=== PATIENT | female | born 1985 | race Caucasian/White ===

== ENCOUNTER 2018-07-13 14:58 | Outpatient (REF) | payer BC, MEDICAID, SELFPAY ==
[2018-07-13 21:19] LABS: Absolute Basophil Count 0.03 k/cumm (0.0-0.2); Absolute Eosinophil Count 0.08 k/cumm (0.0-0.7); Absolute Lymphocyte Count 1.67 k/cumm (1.2-3.4); Absolute Neutrophil Count 3.05 k/cumm (1.2-6.7); Basophils % 0.6; Eosinophils % 1.6; HGB 12.5 g/dL (12.0-15.5); Lymphocytes % 32.6; Mean Corp. HGB Concentration 33.8 g/dL (32.0-36.0); Mean Corpuscular Hemoglobin 31.4 pg (27.0-33.0); Mean Platelet Volume 10.2 fL (8.0-11.0); Monocytes % 5.8; Neutrophils % 59.4; Platelet Count 268 x1000/uL (130-400); RBC 3.98 m/cumm (4.00-5.20); RBC Distribution Width 11.8 % (11.7-14.6); White Blood Cell Count 5.13 k/cumm (4.4-10.8)
[2018-07-13 21:58] LABS: ALT 12 U/L (12-78); AST 16 U/L (15-37); Albumin 4.2 g/dL (3.4-5.0); Alkaline Phosphatase 46 U/L (46-116); Anion Gap 9.1 mmol/L (3-11); BUN 16 mg/dL (7-18); Bilirubin, Total 0.2 mg/dL (0.2-1.0); CO2 26.9 mmol/L (21.0-32.0); CREATININE 0.64 mg/dL (0.55-1.02); Calcium 8.7 mg/dL (8.5-10.1); Chloride 103 mmol/L (98-107); Glucose 88 mg/dL (70-100); Potassium 3.9 mmol/L (3.5-5.1); Sodium 139 mmol/L (136-145); TSH (W/Ref FT4) 0.79 uIU/mL (0.358-3.74); Total Protein 7.3 g/dL (6.4-8.2); Vitamin B12 1023 pg/mL (193-986)
== END 2018-07-13 15:18 ==
LOC: NCHCN 14:58
PROVIDERS: PCP Naturopath; Visit Provider Nurse Practitioner Family
DX: F41.8 Other specified anxiety disorders (principal); R45.851 Suicidal ideations; F10.10 Alcohol abuse, uncomplicated
CPT/HCPCS: 80053; 82607; 84443; 85025

== ENCOUNTER 2019-03-01 12:35 | Outpatient (REF) | payer MEDICAID, SELFPAY ==
[2019-03-04 10:46] LABS: HSV 1 DNA Result POSITIVE; HSV 2 DNA Result Negative; Varicella Zoster DNA Result Negative
[2019-03-04 15:47] LABS: Chlamydia Result Negative (Negative); GC Result Negative (Negative)
== END 2019-03-01 12:55 ==
LOC: NCHCN 12:35
PROVIDERS: PCP Naturopath; Visit Provider Nurse Practitioner Family
DX: N76.2 Acute vulvitis (principal); Z11.3 Encounter for screening for infections with a predominantly sexual mode of transmission; Z11.59 Encounter for screening for other viral diseases
CPT/HCPCS: 87491; 87529; 87591; 87798

== ENCOUNTER 2020-01-21 13:02 | Outpatient (REF) | payer MEDICAID, SELFPAY ==
[2020-01-24 01:35] LABS: Patient Race White; SARS-CoV-2 RNA Undetected (Undetected); SARS-CoV-2 Specimen Source Nasopharynx
== END 2020-01-21 13:22 ==
LOC: NCHCN 13:02
PROVIDERS: PCP Naturopath; Visit Provider Nurse Practitioner Family
DX: R50.9 Fever, unspecified (principal)
CPT/HCPCS: U0003

== ENCOUNTER 2021-02-23 11:57 | Outpatient (REF) | payer MEDICAID, SELFPAY ==
--- NOTE | 2021-02-23 11:00 | PAPFT_PTH ---
PATIENT: Denisse Rousseau LOC: [facility]#:[id number] AGE/SX: 35/F ROOM: RE02/23/[address]: Baylee Flor : 1985 BED: DIS: 02/23/2021 SPEC #: [id number] RECD: 02/23/21 17:54 STATUS: DESI REKerri #: [id number] VIPIN: 02/23/21 11:[address]: Baylee Flor [facility]PT[facility] Cytology RECD BY: Tootie Lindsay ENTERED: 02/23/21 17:54 SP TYPE: PAPFT OTHR DR: Howie Montgomery Tissues: 1 - CX/ENDOCX FOR PAP SMEARS Procedures: PAP THIN PREP/UVM Screening HPV DNA PROBE Comments: [id number] (CHLAMYDIA/GC)
[2021-02-23 15:20] LABS: ALT 18 U/L (14-59); AST 15 U/L (15-37); Albumin 4.2 g/dL (3.4-5.0); Alkaline Phosphatase 48 U/L (46-116); BUN 17 mg/dL (7-18); Bilirubin, Total 0.1 mg/dL (0.2-1.0); CREATININE 0.8 mg/dL (0.55-1.02); Calcium 9.2 mg/dL (8.5-10.1); Calculated LDL 117 mg/dL (<100); Chloride 104 mmol/L (98-107); Cholesterol 221 mg/dL (<200); Glucose 93 mg/dL (74-106); HDL Cholesterol 96 mg/dL (40-60); Potassium 4.6 mmol/L (3.5-5.1); Sodium 140 mmol/L (136-145); Total Protein 7.6 g/dL (6.4-8.2); Triglyceride 44 mg/dL (<150)
[2021-02-24 11:16] LABS: Hepatitis C Ab w Rflx HCV PCR Negative (Negative)
[2021-02-24 11:24] LABS: HIV-1/2 Ag & Ab Screen Negative (Negative)
[2021-02-24 15:26] LABS: Syphilis Serology (RPR) Negative (Negative)
[2021-02-24 15:27] LABS: Chlamydia Result Negative (Negative); GC Result Negative (Negative)
== END 2021-02-23 11:58 | disposition home or self-care (01) ==
LOC: NCHCN 11:57
PROVIDERS: PCP Naturopath; Visit Provider Nurse Practitioner Family
DX: Z11.3 Encounter for screening for infections with a predominantly sexual mode of transmission (principal); Z11.4 Encounter for screening for human immunodeficiency virus [HIV]; Z00.00 Encounter for general adult medical examination without abnormal findings; Z13.220 Encounter for screening for lipoid disorders; Z11.59 Encounter for screening for other viral diseases; Z12.4 Encounter for screening for malignant neoplasm of cervix; Z11.51 Encounter for screening for human papillomavirus (HPV)
CPT/HCPCS: 80053; 80061; 86803; 87389; 87491; 87591; 88142; 86592; 87624

== ENCOUNTER 2022-07-20 06:02 | Day surgery (SDC) | payer MEDICAID, SELFPAY ==
[2022-07-20 06:17] VITALS: BP 123/76; PULSE 74; RESP 16; TEMP 36.6; O2SAT 98
[2022-07-20] MEDS: Lactated Ringers 1,000 ML 80 ML IV (06:46)
--- NOTE | 2022-07-20 07:07 | W.ANESPRE ---
General Info Date of Service Date Performed: 07/20/22 Height: 5 ft 5 in Weight: 77.5 kg Body Mass Index (BMI): 28.4 Surgical Procedure: Operation Date: 07/20/22 07:40 Proposed Procedure Side Surgeon p Wrist ECTR Right Riley Rodriguez MD Meds Allergies and Home Medications Allergies Allergy/AdvReac Type Severity Reaction Status Date / Time No Known Allergies Allergy Verified 07/20/22 06:10 Home Medication Medication Instructions Recorded bupropion HCl 300 mg 24 hr tablet, 300 mg PO QAM 04/27/21 extended release cholecalciferol (vitamin D3) 50 50 mcg PO BID 04/27/21 mcg (2,000 unit) capsule mirtazapine 45 mg tablet 45 mg PO QHS 04/27/21 omega 5-gpp-iho-fish oil 60 mg-90 1 cap PO DAILY 04/27/21 mg-500 mg capsule (Fish Oil) sertraline 100 mg tablet 150 mg PO DAILY 04/27/21 valacyclovir 500 mg tablet 500 mg PO BID PRN 04/27/21 multivitamin (Daily Multi-Vitamin 1 tab PO DAILY 05/26/21 tablet) acetaminophen 500 mg tablet 1,000 mg PO TID #90 tabs 07/20/22 hydrocodone 5 mg-acetaminophen 325 1 tab PO Q6H PRN pain #4 tabs 07/20/22 mg tablet ibuprofen 600 mg tablet 600 mg PO TID PRN pain #90 tabs 07/20/22 Current Visit Medications: Current Medications Generic Name Dose Route Start Last Admin Trade Name Freq PRN Reason Stop Dose Admin Ringer's Solution 1,000 mls @ 80 mls/hr 07/20/22 06:00 07/20/22 06:46 IV 08/18/22 23:59 80 mls/hr INFUSION BARRY Administration Cefazolin Sodium/Dextrose 2 gm in 50 mls @ 100 mls/hr 07/20/22 06:00 Ancef Duplex IVPB 08/18/22 23:59 PREOP BARRY IV Miscellaneous Supplies 1 each 07/20/22 06:00 Iv Access IV 08/18/22 23:59 DIRECTED BARRY Sodium Chloride 0 ml 07/20/22 06:00 Normal Saline Flush 10 Ml Syr IV 08/18/22 23:59 PRN PRN Sodium Chloride 0 ml 07/20/22 06:00 Normal Saline 10 Ml Vial IJ 08/18/22 23:59 DIRECTED PRN Sterile Water 0 ml 07/20/22 06:00 Water,Injection,Sterile 10 Ml Vial IJ 08/18/22 23:59 DIRECTED PRN PFSH Active Problems Active Problems: Problem Status Onset Code Lateral epicondylitis, right elbow M77.11 Lateral epicondylitis, left elbow M77.12 Carpal tunnel syndrome, right G56.01 Carpal tunnel syndrome, left G56.02 Medical History Medical History Anxiety and depression Surgical History Surgical History History of salpingectomy Hx of unilateral oophorectomy Tobacco Smoking/Tobacco Use Status: Never Alcohol Alcohol Intake: current Alcohol intake frequency: 0-2 drinks per day Substance Use Substance use: Daily Substance use type: marijuana Vital Signs and Lab Results Vital Signs Most Recent Vital Signs in EMR: Most Recent Vital Signs Temp Pulse Resp BP Pulse Ox 36.6 C 74 16 123/76 98 07/20/22 06:17 07/20/22 06:17 07/20/22 06:17 07/20/22 06:17 07/20/22 06:17 Lab Results Blood Type / Crossmatch: No Data to Display Complete Blood Count: No Data to Display Complete Metabolic Panel: No Data to Display Liver Function Panel: No Data to Display Coagulation Panel: No Data to Display Cardiac Panel: No Data to Display Arterial Blood Gas: No Data to Display Venous Blood Gas: No Data to Display Pancreas Panel: No Data to Display Thyroid Panel: No Data to Display Infectious Disease: No Data to Display Blood Cultures: No Data to Display Toxicology Panel: No Data to Display Panel: No Data to Display Anesthesia Assessment and Plan Anesthesia History Personal History: No History of Anesthesia Complications Family History: No Family History of Anesthesia Complications Exercise Tolerance Exercise Tolerance: Metabolic Equivalents>4 Pertinent Negatives Pertinent Negatives: No Symptoms of GERD, No Major Cardiovascular Symptoms or Complaints, No Major Pulmonary Symptoms or Complaints and No History of CVA/TIA Cardiac & Pulmonary Exam Cardiac Exam: Normal S1/S2 Heart Sounds Pulmonary Exam: Clear Bilateral Breath Sounds Implantable Cardiac Device Does patient have a Pacemaker or an ICD?: No Airway Exam Known Difficult Airway: No Mallampati Class: 1 Mouth Opening: Normal (> 3cm) Thyromental Distance: Greater than 3 cm Neck Range of Motion: Full ROM Neck Circumference: Normal Teeth Condition: Normal Dentition ASA Classification ASA Score: ASA 2 Emergency Case?: No NPO Status NPO Status: NPO Clears >2 hours, Solids >8 hours Status Status: Negative HCG Anesthesia Plan Resuscitation Status: Full Code Anesthesia Technique: General Anesthesia Airway Planned: Natural Airway Monitors Used: Standard Monitors
--- NOTE | 2022-07-20 07:12 | PDOC.DSDIS_ITS ---
Date of service: 07/20/22 Time of Service: 07:12 Discharge Plan Disposition Patient Disposition: Home Condition: Good Discharge Details Reason For Visit: R ECTR Attending Provider: Riley Rodriguez Primary Care Provider: Baylee Flor Home Meds and New Rx's Prescriptions: New acetaminophen 500 mg tablet 1,000 mg PO TID Qty: 90 0RF hydrocodone-acetaminophen 5-325 mg tablet 1 tab PO Q6H PRN (Reason: pain) Qty: 4 0RF ibuprofen 600 mg tablet 600 mg PO TID PRN (Reason: pain) Qty: 90 0RF Continued multivitamin [Daily Multi-Vitamin] Tablet 1 tab PO DAILY sertraline 100 mg tablet 150 mg PO DAILY mirtazapine 45 mg tablet 45 mg PO QHS bupropion HCl 300 mg tablet extended release 24 hr 300 mg PO QAM cholecalciferol (vitamin D3) 50 mcg (2,000 unit) capsule 50 mcg PO BID omega 2-yan-xre-fish oil [Fish Oil] 60-90-500 mg capsule 1 cap PO DAILY valacyclovir 500 mg tablet 500 mg PO BID PRN Discharge Instructions Stand Alone Forms: Michael Arias Tunnel Release Referrals: Riley Rodriguez MD [ [facility] STAFF PHYSICIAN] - Activity:: Activity as Tolerated Remove Dressings/Wound Care:: 48 hours Shower/Bathe:: 48 hours Diet:: As Tolerated Discharge Orders Discharge Orders: Discharge Order (Routine); Ordered 07/20/22 Ordered By: Nemesio Guadalupe
--- NOTE | 2022-07-20 07:12 | W.PREOPHP ---
Assessment and Plan Assessment and plan (1) Carpal tunnel syndrome, left: Status: Acute (2) Carpal tunnel syndrome, right: Status: Acute Assessment and plan: Denisse is a 36-year-old female who has bilateral carpal tunnel syndrome. Please see the previous office note for complete detailed history. She is here today for carpal tunnel is on the right side to be followed by the left side in the near future. I discussed the technical details of carpal tunnel release and that I perform an endoscopic release, but would make a larger, open, incision if necessary for visualization. I discussed the risks of the procedure to include, but not limited to, bleeding, infection, palmar pain, stiffness, damage to nerves, damage to vessels, damage to tendons, weakness, recurrence, and incomplete release. Given these risks, Denisse desires to proceed. History of Present Illness History of Present Illness Chief Complaint: Bilateral Carpal Tunnel Syndrome Narrative: Denisse is a 36-year-old who has bilateral carpal tunnel syndrome. Please the previous office note May which details her clinical history. She has failed conservative and nonoperative options and is here today for carpal tunnel release on the right side to be followed by the left side. She denies any new health symptoms. No chest pain or shortness of breath. Review of Systems All systems reviewed & are unremarkable except as noted in HPI and below PFSH All Active Problems Lateral epicondylitis, right elbow (Acute) Steroid injection: 05/26/2021 Lateral epicondylitis, left elbow (Acute) Carpal tunnel syndrome, right (Acute) Carpal tunnel syndrome, left (Acute) Medical History Anxiety and depression Surgical History History of salpingectomy Hx of unilateral oophorectomy Social History Smoking/Tobacco Use Status: Never Smoking risk assessment performed?: Yes Alcohol Intake: current Alcohol Intake frequency: 0-2 drinks per day Drug use: Daily Substance use type: marijuana Current gender identity: female Do you feel safe at home: Yes Do you feel safe in your relationship?: Yes Meds Allergies and Home Medications Allergies Allergy/AdvReac Type Severity Reaction Status Date / Time No Known Allergies Allergy Verified 07/20/22 06:10 Home Medications Medication Instructions Recorded Confirmed Type bupropion HCl 300 mg 24 hr tablet, 300 mg PO QAM 04/27/21 07/20/22 History extended release cholecalciferol (vitamin D3) 50 50 mcg PO BID 04/27/21 07/20/22 History mcg (2,000 unit) capsule mirtazapine 45 mg tablet 45 mg PO QHS 04/27/21 07/20/22 History omega 5-eme-osa-fish oil 60 mg-90 1 cap PO DAILY 04/27/21 07/20/22 History mg-500 mg capsule (Fish Oil) sertraline 100 mg tablet 150 mg PO DAILY 04/27/21 07/20/22 History valacyclovir 500 mg tablet 500 mg PO BID PRN 04/27/21 07/20/22 History multivitamin (Daily Multi-Vitamin 1 tab PO DAILY 05/26/21 07/20/22 History tablet) acetaminophen 500 mg tablet 1,000 mg PO TID #90 tabs 07/20/22 Rx hydrocodone 5 mg-acetaminophen 325 1 tab PO Q6H PRN pain #4 tabs 07/20/22 Rx mg tablet ibuprofen 600 mg tablet 600 mg PO TID PRN pain #90 tabs 07/20/22 Rx Exam Const General: cooperative, healthy appearing, comfortable and no acute distress Resp Auscultation: clear to auscultation bilaterally Cardio Rate: regular rate Rhythm: regular rhythm Results Last Vital Signs Temp 36.6 C 07/20/22 06:17 Pulse 74 07/20/22 06:17 Resp 16 07/20/22 06:17 BP 123/76 07/20/22 06:17 Pulse Ox 98 07/20/22 06:17
[2022-07-20 07:22] VITALS: BMI 28.4
[2022-07-20] MEDS: ceFAZolin 2 GM/50 ML BAG IVPB (07:35)
[2022-07-20] MEDS: Lidocaine 1% Pres-Free W/EPI 1/200,000 10 ML VIAL (07:45)
[2022-07-20 07:50] VITALS: BP 114/61; PULSE 63; RESP 16; TEMP 36.2; O2SAT 100
[2022-07-20 08:25] VITALS: BP 126/68; PULSE 64; RESP 16; TEMP 36.5; O2SAT 98
--- NOTE | 2022-07-20 11:12 | W.PM.OP ---
Date of service: 07/20/22 Time of Service: 07:45 Operative Note Operative Note DATE OF PROCEDURE: 07/20/22 PRE-OP DIAGNOSIS: Right Carpal Tunnel Syndrome POST-OP DIAGNOSIS: same PROCEDURE: Right Endoscopic Carpal Tunnel Release SURGEON: Riley Rodriguez ANESTHESIA TYPE: General:No Airway Refer to Anesthesia Record ESTIMATED BLOOD LOSS: 0 PATHOLOGY: none sent TOURNIQUET TIME: 3 COMPLICATIONS: None Patient was transported to: same day Patient's condition: stable Implants: Right Endoscopic Carpal Tunnel Release Indications: I have seen Denisse in clinic for symptoms of carpal tunnel syndrome. The numbness, tingling, and pain limited function. Clinical exam findings confirmed the diagnosis of carpal tunnel syndrome. Nonoperative measures such as bracing, time, activity modifications had been tried but disability and pain persisted. I discussed carpal tunnel release with the patient. I reviewed the risks of the procedure to include, but not limited to, bleeding, infection, pain, stiffness, incomplete release, damage to nerves or vessels, persistent numbness, recurrence. Despite these risks, the patient elected to proceed. Findings: There was tightened carpal tunnel. This was dilated and released successfully with the endoscopic with increased space within the tunnel. The antebrachial fascia was released proximally freeing the median nerve at the wrist. Procedure Description: Denisse was greeted in the preoperative holding area where the correct side was identified and marked. The consent was reviewed with the patient and signed. The history and physical was updated. All questions were answered. She was taken back to the operating room. The patient was placed into the supine position on the operating room table with the right arm on an arm board. A nonsterile tourniquet was placed high onto the arm. All bony prominences were well padded. Prophylactic antibiotics in the form of Cefazolin were administered. The right arm was then prepped with Chloraprep and draped in a standard fashion with stockinette and extremity drape. A timeout to confirm correct identity, side and site, procedure, allergies, anesthesia, and medical concerns was performed. The surgical site was marked in the volar wrist creases in line with the radial border of the fourth ray. This area was anesthetized with approximately 6cc of 1% Lidocaine. The limb was then exsanguinated with an Esmarch. The skin was incised with a 15 blade, approximately 1cm. The skin only was cut and the deeper tissue was dissected bluntly with a tenotomy scissor, avoiding passing nerve and venous structures. The fascia was penetrated and opened bluntly. A two-prong skin hook was placed under this proximal fascial edge. A series of hamate finders were used to identify and dilate the carpal tunnel. Synovial elevator was used to free synovial attachments to the underside of the transverse carpal ligament. My thumb was kept in the palm to martin the distal extent of the carpal tunnel and correctly position the hand. The [employer]aire endoscope was inserted without difficulty and without resistance. Excellent visualization showed horizontally running fibers of the transverse carpal ligament (TCL). The distal extent of the TCL was visualized and the end of the scope palpated with the thumb. The blade was elevated and withdrawn from distal to proximal. The TCL was split into two flaps. The endoscope was reinserted to confirm complete release and any remnant ligament was incised. The scope was withdrawn and the proximal aspect of the carpal tunnel was grossly inspected and appeared release with the median nerve visible. The antebrachial fascia at the level of the wrist was then freed from the overlying skin and then the underlying median nerve with blunt dissection. This was transected longitudinally for about 3cm proximal to the wrist incision. The wound was then irrigated with easy flow of irrigant distally and proximally. The incision was closed with a single 4-0 Nylon suture. The wound was dressed with Xeroform, Gauze, Kerlix and Ruddy. The tourniquet was deflated with the initial dressing and held with some pressure. Blood flow returned easily to all digits with capillary refill less than 2 seconds. The patient tolerated the procedure well and was returned to the Same Day Surgery area in a stable condition suffering no known complication.
--- NOTE | 2022-07-20 11:29 | W.ANESPOSTOP ---
Postoperative Evaluation Date, Time and Location Date Performed: 07/20/22 Time Performed: 11:30 Patient Location: Day Surgery Unit Vital Signs Most Recent Imported Vital Signs: Most Recent Vital Signs Temp Pulse Resp BP Pulse Ox 36.5 C 64 16 126/68 98 07/20/22 08:25 07/20/22 08:25 07/20/22 08:25 07/20/22 08:25 07/20/22 08:25 Pain Score Most Recent Pain Score: Most Recent Pain Score Pain Level 0 07/20/22 08:25 Assessment Mental Status: Awake (Alert & Oriented to Patient Baseline) Airway and Respiratory Function: Patent airway with normal (patient baseline) respiratory exam Cardiovascular Function: Hemodynamically Stable Hydration Status: Adequately Hydrated Nausea & Vomiting: No Nausea or Vomiting Pain: Pt. Denies Any Pain Peripheral Nerve Block: Patient did not receive a nerve block Postoperative Comments:: Patient seen earlier today, was waiting on VS imput, patient was appropriate for discharge.
== END 2022-07-20 08:41 | disposition home or self-care (01) ==
PROVIDERS: PCP Nurse Practitioner Family; Visit Provider Student in an Organized Health Care Education/Training Program
PROC: 01N54ZZ Release Median Nerve, Percutaneous Endoscopic Approach (ICD-10-PCS; CPT 29848; principal; 2022-07-20 07:30)
DX: G56.03 Carpal tunnel syndrome, bilateral upper limbs (principal)
CPT/HCPCS: 29848; 81025; J0690

== ENCOUNTER 2022-09-06 15:23 | Outpatient (REF) | payer MEDICAID, SELFPAY ==
[2022-09-06 16:59] LABS: ALT 20 U/L (14-59); AST 22 U/L (15-37); Albumin 4.3 g/dL (3.4-5.0); Alkaline Phosphatase 44 U/L (46-116); Anion Gap 7.4 mmol/L (3-11); BUN 17 mg/dL (7-18); Bilirubin, Total 0.3 mg/dL (0.2-1.0); CO2 25.6 mmol/L (21.0-32.0); CREATININE 0.8 mg/dL (0.55-1.02); Calcium 9.1 mg/dL (8.5-10.1); Chloride 105 mmol/L (98-107); Estimated GFR 97.87 (mL/min/1.73m2); Glucose 99 mg/dL (74-106); Potassium 4.6 mmol/L (3.5-5.1); Sodium 138 mmol/L (136-145); TSH (W/Ref FT4) 0.78 uIU/mL (0.36-3.74); Total Protein 8.2 g/dL (6.4-8.2)
== END 2022-09-06 15:24 | disposition home or self-care (01) ==
LOC: NCHCN 15:23
PROVIDERS: PCP Nurse Practitioner Family; Visit Provider Family Medicine
DX: F10.10 Alcohol abuse, uncomplicated (principal); Z13.29 Encounter for screening for other suspected endocrine disorder; Z00.00 Encounter for general adult medical examination without abnormal findings
CPT/HCPCS: 80053; 84443

== ENCOUNTER → 2022-12-21 03:46 | Outpatient (CLI) | payer MEDICAID, SELFPAY ==
--- NOTE | 2022-12-21 11:35 | DI.US_ITS ---
Exam(s) US SOFT TISS BUTTOCK/PERINEUM EXAM: US SOFT TISS BUTTOCK/PERINEUM CLINICAL HISTORY: ANAL OR RECTAL PAIN, K62.89, ? ANAL ABSCESS. TECHNIQUE: Ultrasound was performed using standard protocol. COMPARISON: No exams were available for comparison FINDINGS: Sonographic assessment utilizing grayscale and color Doppler imaging was performed and targeted to th e area of clinical concern. Sonographic evaluation was performed in the area of prior cyst. No cystic or solid masses are seen s onographically. IMPRESSION: No cystic or solid masses are seen sonographically. DATA REPOSITORY:
== END ==
PROVIDERS: PCP Nurse Practitioner Family; Visit Provider Family Medicine
DX: K62.89 Other specified diseases of anus and rectum (principal)
CPT/HCPCS: 76857

== ENCOUNTER 2024-05-02 19:11 | Outpatient (REF) | payer BC, MEDICAID, SELFPAY ==
[2024-05-02 21:36] LABS: Abs Immature Grans 0.01 10^3/uL (0.0-0.06); Absolute Basophil Count 0.02 10^3/uL (0.0-0.2); Absolute Eosinophil Count 0.04 10^3/uL (0.0-0.7); Absolute Lymphocyte Count 2.25 10^3/uL (1.2-3.4); Absolute Monocyte Count 0.33 10^3/uL (0.1-0.8); Absolute Neutrophil Count 3.32 10^3/uL (1.2-6.7); Basophils % 0.3 %; Eosinophils % 0.7 %; HCT 38.3 % (36.0-46.0); HGB 12.8 g/dL (11.2-15.7); Immature Grans % 0.2 %; Lymphocytes % 37.7 %; MCH 31.6 pg (27.0-33.0); MCHC 33.4 % (32.0-36.0); MCV 95 fL (80-95); MPV 9.2 fL (8.0-11.0); Monocytes % 5.5 %; Neutrophils % 55.6 %; Platelet Count 275 10^3/uL (130-400); RBC 4.05 10^6/uL (3.93-5.22); RDW 12.6 % (11.7-14.6); RDW-SD 43.7 fL; WBC 5.97 10^3/uL (4.4-10.8)
[2024-05-02 21:56] LABS: ALT 16 U/L (14-59); AST 20 U/L (15-37); Albumin 4.4 g/dL (3.4-5.0); Alkaline Phosphatase 53 U/L (46-116); Anion Gap 4.8 mmol/L (3-11); BUN 14 mg/dL (7-18); Bilirubin, Total 0.26 mg/dL (0.2-1.0); CO2 30.2 mmol/L (21.0-32.0); CREATININE 0.9 mg/dL (0.55-1.02); Calcium 9.1 mg/dL (8.5-10.1); Chloride 105 mmol/L (98-107); Estimated GFR 84.44 (mL/min/1.73m2); Glucose 101 mg/dL (74-106); Potassium 4.4 mmol/L (3.5-5.1); Sodium 140 mmol/L (136-145); TSH (W/Ref FT4) 0.99 uIU/mL (0.36-3.74); Total Protein 7.7 g/dL (6.4-8.2)
== END 2024-05-02 19:12 | disposition home or self-care (01) ==
LOC: NCHCN 19:11
PROVIDERS: PCP Nurse Practitioner Family; Visit Provider Family Medicine
DX: R61 Generalized hyperhidrosis (principal)
CPT/HCPCS: 80053; 84443; 85025